=== PATIENT | female | born 1960 | race Caucasian/White ===

== ENCOUNTER 2017-07-19 10:24 | Emergency (ER) | payer BC ==
[2017-07-19 10:58] VITALS: BP 96/76
--- NOTE | 2017-07-19 11:47 | RAD ---
HISTORY: Fall, bilateral wrists pain COMPARISONS: None VIEWS: 3, Frontal, lateral, and oblique views of the right wrist and of the left wrist FINDINGS: Right: BONE DENSITY: Normal. BONES: There is a nondisplaced longitudinally oriented fracture of the distal radius with articular extension. JOINTS: There is no arthropathy. ALIGNMENT: There is no dislocation. The alignment is anatomic. SOFT TISSUES: Unremarkable. Left: BONE DENSITY: Normal. BONES: There is a nondisplaced transverse fracture of the distal radial metaphysis. JOINTS: There is no arthropathy. ALIGNMENT: There is no dislocation. The alignment is anatomic. SOFT TISSUES: Unremarkable. OTHER FINDINGS: None. IMPRESSION: NONDISPLACED FRACTURES OF THE DISTAL LEFT RADIUS AND DISTAL RIGHT RADIUS.
--- NOTE | 2017-07-19 13:01 | UC ---
Upper Extremity HPI - HPI Summary HPI Summary: Patient is a 56-year-old female presenting to the with chief complaint of bilateral wrist pain after a fall yesterday. She states she fell on outstretched arms bilaterally as she was trying to pack. Endorses ecchymosis and mild amount of pain to both volar sides of the wrist. She is able to move her fingers freely. Range of motion still intact. Denies any arm pain elbow pain or finger pain otherwise. She is neurovascularly intact. She has never fractured the area before. She has been taking Tylenol and ibuprofen. - History of Current Complaint Chief Complaint: UCUpperExtremity Stated Complaint: WRIST INJURY Time Seen by Provider: 07/19/17 10:43 Hx Obtained From: Patient ?: No Onset/Duration: Sudden Onset Severity Initially: Mild Severity Currently: Mild Pain Intensity: 4 Pain Scale Used: 0-10 Numeric Location Of Pain: Is Discrete @ - bilateral radial wrist Aggravating Factor(s): Lifting, Flexion, Extension, Internal/External Rotation Alleviating Factor(s): Nothing Associated Signs And Symptoms: Positive: Bruising Related History: Dominant Hand Right - Risk Factors Non-Orthopedic Risk Factor: Negative DVT Risk Factors: Negative - Allergies/Home Medications Allergies/Adverse Reactions: Allergies Allergy/AdvReac Type Severity Reaction Status Date / Time Steroids Allergy Unknown Unknown Uncoded 07/19/17 10:59 Reaction Details Home Medications: Home Medications NK [No Home Medications Reported] 07/19/17 [History Confirmed 07/19/17] PMH/Surg Hx/FS Hx/Imm Hx Previously Healthy: Yes - Surgical History Surgical History: Yes Surgery Procedure, Year, and Place: Breast CA - Family History Known Family History: Negative: Cardiac Disease, Diabetes - Social History Occupation: Employed Full-time Lives: With Family Alcohol Use: None Substance Use Type: None Smoking Status (MU): Never Smoked Tobacco Review of Systems Constitutional: Negative Skin: Negative Respiratory: Negative Cardiovascular: Negative Motor: Negative, Other - no decreased ROM Neurovascular: Negative Musculoskeletal: Arthralgia Neurological: Negative Is Patient Immunocompromised?: No All Other Systems Reviewed And Are Negative: Yes Physical Exam Triage Information Reviewed: Yes Appearance: Well-Appearing, Well-Nourished Vital Signs: Initial Vital Signs Temp 97.7 F 07/19/17 10:56 Pulse 68 07/19/17 10:56 Resp 16 07/19/17 10:56 BP 96/76 07/19/17 10:56 Pulse Ox 100 07/19/17 10:56 Vital Signs Reviewed: Yes Eyes: Positive: Conjunctiva Clear Respiratory: Positive: Chest non-tender, Lungs clear Cardiovascular Exam: Normal Cardiovascular: Positive: No Murmur Neurological Exam: Normal Neurological: Positive: Alert Psychological: Positive: Normal Response To Family Skin: Positive: Other - ecchymosis Upper Extremity Course/Dx - Course Course Of Treatment: Patient is evaluated for bilateral wrist pain after a flu sheet injury. X-ray obtained which shows bilateral left and right nondisplaced fractures of the radius. Bilateral splints applied. She is referred to Ortho. Ibuprofen encouraged. - Differential Dx/Diagnosis Differential Diagnosis/HQI/PQRI: Fracture (Open), Fracture (Closed) Provider Diagnoses: Radial fractures - bilaterally Discharge - Sign-Out/Discharge Documenting (check all that apply): Discharge/Admit/Transfer - Discharge Plan Condition: Stable Disposition: HOME Patient Education Materials: Wrist Fracture in Adults (ED) Referrals: Michael Renee MD [Primary Care Provider] - Henri Fisher MD [Medical Doctor] - Additional Instructions: Ibuprofen 600mg three times daily Do not get these wet Follow up with ortho within 1 week - Billing Disposition and Condition Condition: STABLE Disposition: HOME
== END 2017-07-19 12:25 | disposition home or self-care (01) ==
LOC: UCEAST 10:24
DX: S52.501A Unspecified fracture of the lower end of right radius, initial encounter for closed fracture (principal); S52.302A Unspecified fracture of shaft of left radius, initial encounter for closed fracture; W19.XXXA Unspecified fall, initial encounter; Y93.89 Activity, other specified; Y92.9 Unspecified place or not applicable; Z88.8 Allergy status to other drugs, medicaments and biological substances

== ENCOUNTER 2017-09-25 09:25 | Emergency (ER) | payer BC ==
--- OUTSIDE RECORDS SUMMARY | 2017-09-25 09:29 | XMS REPORT ---
:1960 External Reference #:[id number] Author Organization [id number] Address [address] [place] [address] [place] [address] Phone [phone] Care Team Providers Name Role Phone Michael Renee MD Primary Care Physician Unavailable Payers Type Date Identification Numbers Payment Provider Subscriber Commercial Policy Number: [id number] [facility] Elsa Puente PayID: [id number] [address] [place] [address] Problems Description No Information Social History Type Date Description Comments Lives With Spouse Occupation 07/23/[address] [employer] Document: 07/23/17 - Ortho Initial Visit ETOH Use Denies alcohol use Smoking Patient has never smoked Exercise Type/Frequency Exercises regularly Allergies, Adverse Reactions, Alerts Date Description Reaction Status Severity Comments 08/08/2017 Steroids active Medications Medication Date Status Form Strength Qnty SIG Indications Ordering Provider No Active 08/08/2017 Active Unknown Medications Vital Signs Date Vital Result Comment 09/03/2017 Height 67 inches 5'7" Heart Rate 74 /min BP Systolic 102 mmHg BP Diastolic 60 mmHg Respiratory Rate 12 /min Body Temperature 97.5 F Pain Level 3 08/08/2017 Height 67 inches 5'7" Weight 125.00 lb BP Systolic 118 mmHg BP Diastolic 64 mmHg Respiratory Rate 16 /min Body Temperature 96.8 F Pain Level 4 BMI (Body Mass Index) 19.6 kg/m2 07/23/2017 Height 67 inches 5'7" Weight 125.00 lb BP Systolic 126 mmHg BP Diastolic 78 mmHg Respiratory Rate 12 /min Body Temperature 97.9 F Pain Level 5 BMI (Body Mass Index) 19.6 kg/m2 Results Description No Information Procedures Date CPT Code Description Status 06/09/2011 96556 ECHO Transthoracic, Real-Time 2D With Doppler And Color Completed Flow 05/10/2011 18518 ECHO Transthoracic, Real-Time 2D With Doppler And Color Completed Flow 02/06/2011 83952 ECHO Transthoracic, Real-Time 2D With Doppler And Color Completed Flow Encounters Type Date Location Provider CPT E/M Dx Office Visit 08/08/2017 [facility] Nisreen Quigley, [id number] S52.571D 8:45a Of Eduin Abreu S52.572D Office Visit 07/23/2017 11:00a [facility] Nisreen Quigley, [id number] S52.571A Of Eduin Abreu S52.572A Plan of Care 09/03/2017 - Nisreen Quigley M.D.S52.571D Oth intartic fx low end r rad, subs for clos fx w routn healNew Xrays:Wrist Right 2 VWSNew Therapy:Physical TherapyFollow up:Follow up: 4-6 [id number] Oth intartic fx low end l rad, subs for clos fx w routn healNew Xrays:Wrist Left 2 VWS
[2017-09-25 09:39] VITALS: BP 107/72
--- NOTE | 2017-09-25 10:02 | UC ---
Hand/Wrist HPI - HPI Summary HPI Summary: 56 yo female presents with fall 1 week ago and landed on her b/l hands outstretched. She is very concerned because she broke both of her wrists 2 months ago from a fall and is worried she may have broken them again. They were swollen the day after her recent fall, but has resolved. Denies numbness or tingling. - History Of Current Complaint Chief Complaint: UCUpperExtremity Stated Complaint: WRIST INJURY Time Seen by Provider: 09/25/17 10:02 Hx Obtained From: Patient Onset/Duration: Sudden Onset Severity Initially: Moderate Severity Currently: Mild Pain Intensity: 3 Pain Scale Used: 0-10 Numeric - Allergies/Home Medications Allergies/Adverse Reactions: Allergies Allergy/AdvReac Type Severity Reaction Status Date / Time Steroids Allergy Unknown Unknown Uncoded 09/25/17 09:37 Reaction Details PMH/Surg Hx/FS Hx/Imm Hx - Additional Past Medical History Additional PMH: None Previously Healthy: Yes - Surgical History Surgical History: Yes Surgery Procedure, Year, and Place: Breast CA - Family History Known Family History: Negative: Cardiac Disease, Diabetes - Social History Lives: With Family Alcohol Use: None Substance Use Type: None Smoking Status (MU): Never Smoked Tobacco Review of Systems Constitutional: Negative Skin: Negative Respiratory: Negative Cardiovascular: Negative Musculoskeletal: Other: - B/l wrist pain Neurological: Negative Psychological: Negative All Other Systems Reviewed And Are Negative: Yes Physical Exam - Summary Physical Exam Summary: GENERAL: NAD. WDWN. No pain distress. SKIN: No rashes, sores, lesions, or open wounds. NECK: Supple. Nontender. No lymphadenopathy. CHEST: No accessory muscle use. Breathing comfortably and in no distress. CV: Pulses intact radial and ulnar. MSK: B/L Wrists: FROM. NTTP. 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 No edema or obvious bony deformities. No snuffbox tenderness. NEURO: Alert. Sensations intact hand and all fingers. PSYCH: Age appropriate behavior. Triage Information Reviewed: Yes Vital Signs: Initial Vital Signs Temp 97.5 F 09/25/17 09:31 Pulse 57 09/25/17 09:31 Resp 18 09/25/17 09:31 BP 107/72 09/25/17 09:31 Pulse Ox 98 09/25/17 09:31 Vital Signs Reviewed: Yes Hand/Wrist Course/Dx - Course Course Of Treatment: XR: IMPRESSION: HEALING, BILATERAL WRIST FRACTURES. Pt was elated to hear this news and declined further treatment. F/u prn - Differential Dx/Diagnosis Provider Diagnoses: Fall. b/l wrist pain Discharge - Sign-Out/Discharge Documenting (check all that apply): Patient Departure - Discharge Plan Condition: Stable Disposition: HOME Referrals: Michael Renee MD [Primary Care Provider] - Additional Instructions: If you develop a fever, shortness of breath, chest pain, new or worsening symptoms - please call your PCP or go to the ED. - Billing Disposition and Condition Condition: STABLE Disposition: Home
--- NOTE | 2017-09-25 10:29 | RAD ---
INDICATION: Trauma COMPARISON: Left and right wrist September 03, 2017 TECHNIQUE: AP, lateral, and oblique views of each wrist were obtained. FINDINGS: There are healing distal radial fractures bilaterally. The fracture lines are no longer visible. There is sclerosis consistent with healing response. There is mild diffuse soft tissue swelling about each wrist. IMPRESSION: HEALING, BILATERAL WRIST FRACTURES
== END 2017-09-25 10:44 | disposition home or self-care (01) ==
LOC: UCEAST 09:25
DX: M25.532 Pain in left wrist (principal); M25.531 Pain in right wrist; Z88.8 Allergy status to other drugs, medicaments and biological substances; W19.XXXA Unspecified fall, initial encounter; Y92.9 Unspecified place or not applicable
CPT/HCPCS: 99211; G0463